=== PATIENT | female | born 1965 | race Caucasian/White ===

== ENCOUNTER 2021-03-02 19:25 | Inpatient (IN) ==
[2021-03-02 20:38] LABS: Basophils # 0.1 K/mcL (0.0-0.2); Basophils % 0.5 %; Eosinophils # 0.3 K/mcL (0.0-0.6); Eosinophils % 1.9 %; Hematocrit 39.8 % (35.3-44.9); Hemoglobin 12.6 g/dL (11.5-15.4); Immature Granulocytes % 0.6 % (0-4); Lymphocytes # 1.7 K/mcL (0.6-4.6); Lymphocytes % 13.3 %; Mean Corpuscular HGB Conc 31.7 g/dL (31.6-35.5); Mean Corpuscular Hemoglobin 29.1 pg (28.0-33.3); Mean Corpuscular Volume 91.9 fL (83.0-100.0); Mean Platelet Volume 11.1 fL (9.4-12.4); Monocytes # 1.4 K/mcL (0.0-1.3); Monocytes % 10.4 %; Neutrophils # 9.6 K/mcL (1.6-8.9); Platelet Count 257 K/mcL (140-400); Red Blood Count 4.33 M/mcL (3.82-4.97); Red Cell Distribution Width 13.4 % (11.5-14.5); Segmented Neutrophils % 73.3 %; White Blood Count 13.1 K/mcL (4.3-11.1)
[2021-03-02 21:14] LABS: BUN/Creatinine Ratio 7 (6-26); Blood Urea Nitrogen 4 mg/dL (6-20); Calcium 8.6 mg/dL (8.6-10.3); Carbon Dioxide 24 mEq/L (23-29); Chloride 103 mEq/L (98-107); Glucose 79 mg/dL (70-105); Osmolality,Calculated 276 (280-300); Potassium 3.7 mEq/L (3.5-5.1); Sodium 135 mEq/L (136-145); Troponin I 0.03 ng/mL (< 0.04); eGFR For African Americans > 60 (> 60); eGFR For Non-African Americans > 60 (> 60)
[2021-03-03] MEDS ORDERED: Ipratropium/Albuterol Neb 3 ML IH ONE (00:12)
[2021-03-03] MEDS ORDERED: Piperacillin/Tazobactam 3.375 GM in 0.9 % Sodium Chloride Mini Bag 100 ML IVPB ONE (00:13)
[2021-03-03] MEDS ORDERED: Azithromycin 500 MG in 0.9 % Sodium Chloride 250 ML IVPB ONE (00:13)
[2021-03-03] MEDS ORDERED: Vancomycin 1,500 MG/265 ML IV.SOLN IVPB ONE (00:13)
[2021-03-03 00:29] LABS: Bilirubin,Urine Negative (Negative); Blood,Urine Negative (Negative); Clarity,Urine Clear (Clear); Color,Urine Light-Yellow (Yellow); Glucose,Urine (UA) Normal (Normal); Ketones,Urine 20 mg/dL (Negative); Leukocyte Esterase,Urine Negative (Negative); Nitrite,Urine Negative (Negative); PH,Urine 7.5 pH Units (5.0-8.0); Protein,Urine Trace mg/dL (Neg-Trace); Specific Gravity,Urine 1.015 (1.010-1.025); Urobilinogen,Urine Normal (Normal)
[2021-03-03] MEDS ORDERED: Isovue-370 500 ML BOTTLE IVP ONE (01:15)
[2021-03-03] MEDS ORDERED: Ondansetron 4 MG/2 ML VIAL IVP PRN (01:58)
[2021-03-03] MEDS ORDERED: Naloxone 0.4 MG/ML INJ IVP PRN (01:58)
[2021-03-03 03:34] LABS: Basophils # 0.1 K/mcL (0.0-0.2); Basophils % 0.4 %; Eosinophils # 0.2 K/mcL (0.0-0.6); Eosinophils % 1.5 %; Hematocrit 37.7 % (35.3-44.9); Hemoglobin 12.3 g/dL (11.5-15.4); Immature Granulocytes % 0.5 % (0-4); Lymphocytes # 1.8 K/mcL (0.6-4.6); Lymphocytes % 14.1 %; Mean Corpuscular HGB Conc 32.6 g/dL (31.6-35.5); Mean Corpuscular Hemoglobin 29.2 pg (28.0-33.3); Mean Corpuscular Volume 89.5 fL (83.0-100.0); Mean Platelet Volume 10.9 fL (9.4-12.4); Monocytes # 1.3 K/mcL (0.0-1.3); Monocytes % 9.9 %; Neutrophils # 9.6 K/mcL (1.6-8.9); Platelet Count 279 K/mcL (140-400); Red Blood Count 4.21 M/mcL (3.82-4.97); Red Cell Distribution Width 13.4 % (11.5-14.5); Segmented Neutrophils % 73.6 %; White Blood Count 13.1 K/mcL (4.3-11.1)
[2021-03-03 03:41] LABS: INR 1.5; Prothrombin Time 17.2 Seconds (9.4-12.1)
[2021-03-03 03:53] LABS: Alanine Aminotransferase 15 Units/L (7-52); Albumin 2.8 g/dL (3.5-5.7); Albumin/Globulin Ratio 0.7 (1.1-2.2); Alkaline Phosphatase 96 Units/L (34-104); Aspartate Amino Transferase 12 Units/L (13-39); BUN/Creatinine Ratio 8 (6-26); Bilirubin,Total 0.5 mg/dL (0.3-1.0); Blood Urea Nitrogen 4 mg/dL (6-20); Calcium 8.3 mg/dL (8.6-10.3); Carbon Dioxide 21 mEq/L (23-29); Chloride 102 mEq/L (98-107); Globulin 4.3 g/dL (2.4-3.5); Glucose 79 mg/dL (70-105); Magnesium 1.8 mg/dL (1.6-2.6); Osmolality,Calculated 274 (280-300); Potassium 3.8 mEq/L (3.5-5.1); Sodium 134 mEq/L (136-145); Total Protein 7.1 g/dL (6.4-8.9); eGFR For African Americans > 60 (> 60); eGFR For Non-African Americans > 60 (> 60)
[2021-03-03 04:01] LABS: Thyroid Stimulating Hormone 3.615 mcIU/mL (0.340-5.600)
[2021-03-03] MEDS: Calcium Gluconate 1gm/50mL 1 GM/50 ML BAG IVPB SCH ×2 (09:44→11:38)
[2021-03-03] MEDS: Amoxicillin 500 MG CAPSULE PO SCH ×3 (11:37→20:05)
[2021-03-03] MEDS ORDERED: Gadolinium Contrast Agent (WT Based) IV PRN (15:50)
[2021-03-03] MEDS ORDERED: GADOBUTROL 30 MMOL/30 ML VIAL IVP ONE (18:06)
[2021-03-03] MEDS: Acetaminophen 325 MG TABLET PO PRN (20:09)
[2021-03-03] MEDS: Budesonide/Formoterol 160/4.5 1 PUFF INH IH SCH (20:35)
[2021-03-04 03:00] LABS: Basophils # 0.1 K/mcL (0.0-0.2); Basophils % 0.7 %; Eosinophils # 0.3 K/mcL (0.0-0.6); Hematocrit 34.9 % (35.3-44.9); Hemoglobin 11.5 g/dL (11.5-15.4); Immature Granulocytes % 0.5 % (0-4); Lymphocytes # 1.8 K/mcL (0.6-4.6); Mean Corpuscular Hemoglobin 29.4 pg (28.0-33.3); Mean Corpuscular Volume 89.3 fL (83.0-100.0); Mean Platelet Volume 10.4 fL (9.4-12.4); Monocytes # 1.2 K/mcL (0.0-1.3); Monocytes % 11.2 %; Neutrophils # 7.3 K/mcL (1.6-8.9); Platelet Count 275 K/mcL (140-400); Red Blood Count 3.91 M/mcL (3.82-4.97); Red Cell Distribution Width 13.5 % (11.5-14.5); Segmented Neutrophils % 67.6 %; White Blood Count 10.8 K/mcL (4.3-11.1)
[2021-03-04 03:11] LABS: Alanine Aminotransferase 26 Units/L (7-52); Albumin 2.6 g/dL (3.5-5.7); Albumin/Globulin Ratio 0.7 (1.1-2.2); Alkaline Phosphatase 108 Units/L (34-104); Aspartate Amino Transferase 29 Units/L (13-39); BUN/Creatinine Ratio 11 (6-26); Bilirubin,Total 0.3 mg/dL (0.3-1.0); Blood Urea Nitrogen 6 mg/dL (6-20); Calcium 7.9 mg/dL (8.6-10.3); Carbon Dioxide 24 mEq/L (23-29); Chloride 102 mEq/L (98-107); Globulin 3.9 g/dL (2.4-3.5); Glucose 118 mg/dL (70-105); Magnesium 2.2 mg/dL (1.6-2.6); Osmolality,Calculated 275 (280-300); Phosphorous 2.7 mg/dL (2.7-4.5); Potassium 3.6 mEq/L (3.5-5.1); Sodium 133 mEq/L (136-145); Total Protein 6.5 g/dL (6.4-8.9); eGFR For African Americans > 60 (> 60); eGFR For Non-African Americans > 60 (> 60)
[2021-03-04] MEDS: Acetaminophen 325 MG TABLET PO PRN ×2 (04:10→15:49)
[2021-03-04] MEDS: Budesonide/Formoterol 160/4.5 1 PUFF INH IH SCH ×2 (08:04→20:47)
[2021-03-04] MEDS: Amoxicillin 500 MG CAPSULE PO SCH ×3 (09:30→21:09)
[2021-03-04] MEDS: Calcium Gluconate 1gm/50mL 1 GM/50 ML BAG IVPB SCH ×2 (09:30→10:33)
[2021-03-04] MEDS ORDERED: Tiotropium 10 INH DOSE IH SCH (10:00)
[2021-03-04] MEDS ORDERED: Saline Nasal Spray 44 ML BOTTLE NS PRN (18:16)
[2021-03-04] MEDS ORDERED: Melatonin 3 MG TABLET PO PRN (18:16)
[2021-03-04] MEDS: Tiotropium 10 INH DOSE IH SCH (20:49)
[2021-03-04] MEDS: Artificial Tears SOLN 15 ML BOTTLE BOTH EYES SCH (21:10)
[2021-03-05 06:14] LABS: Basophils # 0.1 K/mcL (0.0-0.2); Basophils % 0.6 %; Eosinophils # 0.4 K/mcL (0.0-0.6); Eosinophils % 3.6 %; Hematocrit 35.1 % (35.3-44.9); Hemoglobin 11.1 g/dL (11.5-15.4); Immature Granulocytes % 0.9 % (0-4); Lymphocytes # 1.9 K/mcL (0.6-4.6); Lymphocytes % 17.2 %; Mean Corpuscular HGB Conc 31.6 g/dL (31.6-35.5); Mean Corpuscular Hemoglobin 28.7 pg (28.0-33.3); Mean Corpuscular Volume 90.7 fL (83.0-100.0); Mean Platelet Volume 10.1 fL (9.4-12.4); Monocytes # 1.1 K/mcL (0.0-1.3); Monocytes % 10.2 %; Neutrophils # 7.3 K/mcL (1.6-8.9); Platelet Count 302 K/mcL (140-400); Red Blood Count 3.87 M/mcL (3.82-4.97); Red Cell Distribution Width 13.8 % (11.5-14.5); Segmented Neutrophils % 67.5 %; White Blood Count 10.8 K/mcL (4.3-11.1)
[2021-03-05 06:46] LABS: Alanine Aminotransferase 28 Units/L (7-52); Albumin 2.7 g/dL (3.5-5.7); Albumin/Globulin Ratio 0.7 (1.1-2.2); Alkaline Phosphatase 114 Units/L (34-104); Aspartate Amino Transferase 21 Units/L (13-39); BUN/Creatinine Ratio 11 (6-26); Bilirubin,Total 0.3 mg/dL (0.3-1.0); Blood Urea Nitrogen 6 mg/dL (6-20); Calcium 8.3 mg/dL (8.6-10.3); Carbon Dioxide 25 mEq/L (23-29); Chloride 103 mEq/L (98-107); Globulin 4.1 g/dL (2.4-3.5); Glucose 119 mg/dL (70-105); Osmolality,Calculated 279 (280-300); Potassium 3.4 mEq/L (3.5-5.1); Sodium 135 mEq/L (136-145); Total Protein 6.8 g/dL (6.4-8.9); eGFR For African Americans > 60 (> 60); eGFR For Non-African Americans > 60 (> 60)
[2021-03-05 06:47] LABS: % Iron Saturation 10 % (15-50); Iron 20 mcg/dL (50-170); Transferrin 148 mg/dL (203-362)
[2021-03-05 06:51] LABS: Ferritin 364 ng/mL (10-120)
[2021-03-05 06:57] LABS: Folate 8.9 ng/mL (3.0-16.0)
[2021-03-05] MEDS: Budesonide/Formoterol 160/4.5 1 PUFF INH IH SCH ×2 (07:47→20:30)
[2021-03-05] MEDS ORDERED: Iron Sucrose Complex 400 MG in 0.9 % Sodium Chloride 250 ML IVPB ONE (07:50)
[2021-03-05] MEDS: Multivit/Ca/Min/Fe/FA 1 TAB TABLET PO SCH (08:19)
[2021-03-05] MEDS: Amoxicillin 500 MG CAPSULE PO SCH ×2 (08:20→14:19)
[2021-03-05] MEDS: Artificial Tears SOLN 15 ML BOTTLE BOTH EYES SCH ×2 (09:44→19:49)
[2021-03-05] MEDS: Calcium Gluconate 1gm/50mL 1 GM/50 ML BAG IVPB SCH ×2 (12:59→14:50)
[2021-03-05] MEDS ORDERED: Calcium Gluconate 1gm/50mL 1 GM/50 ML BAG IVPB ONE (14:13)
[2021-03-05] MEDS: Piperacillin/Tazobactam 3.375 GM in 0.9 % Sodium Chloride Mini Bag 100 ML IVPB SCH ×2 (15:32→23:37)
[2021-03-05] MEDS: Tiotropium 10 INH DOSE IH SCH (20:30)
[2021-03-06 05:51] LABS: Basophils # 0.1 K/mcL (0.0-0.2); Basophils % 0.6 %; Eosinophils # 0.6 K/mcL (0.0-0.6); Eosinophils % 5.9 %; Hematocrit 35.2 % (35.3-44.9); Hemoglobin 10.9 g/dL (11.5-15.4); Immature Granulocytes % 1.4 % (0-4); Lymphocytes # 1.8 K/mcL (0.6-4.6); Lymphocytes % 16.8 %; Mean Corpuscular Hemoglobin 28.3 pg (28.0-33.3); Mean Corpuscular Volume 91.4 fL (83.0-100.0); Monocytes # 1.1 K/mcL (0.0-1.3); Monocytes % 10.4 %; Platelet Count 299 K/mcL (140-400); Red Blood Count 3.85 M/mcL (3.82-4.97); Red Cell Distribution Width 13.8 % (11.5-14.5); Segmented Neutrophils % 64.9 %; White Blood Count 10.8 K/mcL (4.3-11.1)
[2021-03-06 06:07] LABS: Alanine Aminotransferase 33 Units/L (7-52); Albumin 2.8 g/dL (3.5-5.7); Albumin/Globulin Ratio 0.7 (1.1-2.2); Alkaline Phosphatase 106 Units/L (34-104); Aspartate Amino Transferase 27 Units/L (13-39); BUN/Creatinine Ratio 15 (6-26); Bilirubin,Total 0.2 mg/dL (0.3-1.0); Blood Urea Nitrogen 8 mg/dL (6-20); Calcium 8.7 mg/dL (8.6-10.3); Carbon Dioxide 24 mEq/L (23-29); Chloride 105 mEq/L (98-107); Globulin 3.9 g/dL (2.4-3.5); Glucose 130 mg/dL (70-105); Magnesium 2.1 mg/dL (1.6-2.6); Osmolality,Calculated 278 (280-300); Phosphorous 4.3 mg/dL (2.7-4.5); Sodium 134 mEq/L (136-145); Total Protein 6.7 g/dL (6.4-8.9); eGFR For African Americans > 60 (> 60); eGFR For Non-African Americans > 60 (> 60)
[2021-03-06] MEDS: Budesonide/Formoterol 160/4.5 1 PUFF INH IH SCH (07:59)
[2021-03-06] MEDS: Artificial Tears SOLN 15 ML BOTTLE BOTH EYES SCH (10:17)
[2021-03-06] MEDS: Piperacillin/Tazobactam 3.375 GM in 0.9 % Sodium Chloride Mini Bag 100 ML IVPB SCH ×2 (10:17→16:33)
[2021-03-06] MEDS: Multivit/Ca/Min/Fe/FA 1 TAB TABLET PO SCH (10:18)
[2021-03-06 10:49] VITALS: BP 110/72
[2021-03-06] MEDS ORDERED: Chlorhexidine Rinse 15 ML MOUTHWASH MM SCH (21:00)
[2021-03-07 22:45] LABS: A.galactomannan Ag Index 0.05
== END 2021-03-06 17:39 | disposition home or self-care (01) | DRG 871 ==
LOC: EMEROOARM 19:25 → 3ANU 19:25 → SUATTDRO 03-03 01:38 → 3ANU 03-03 03:14
PROVIDERS: ADMIT Internal Medicine; ATTEND Internal Medicine

== ENCOUNTER 2021-05-07 10:11 | Inpatient (IN) ==
[2021-05-07] MEDS ORDERED: Ondansetron 4 MG/2 ML VIAL IVP PRN ×2 (10:33→19:44)
[2021-05-07] MEDS ORDERED: Ringers Solution, Lactated 1,000 ML IVC SCH (10:45)
[2021-05-07] MEDS ORDERED: CeFAZolin Syr 2,000MG/20 ML 2,000 MG/20 ML SYRINGE IVPB ONE (10:53)
[2021-05-07] MEDS ORDERED: Lidocaine -MPF 4% 5 ML AMPUL ONE (11:06)
[2021-05-07] MEDS ORDERED: *HR* Rocuronium Bromide 50 MG/5 ML VIAL ONE ×2 (11:10→14:07)
[2021-05-07] MEDS ORDERED: *HR* Succinylcholine 200 MG/10 ML VIAL IVP ONE (11:10)
[2021-05-07] MEDS ORDERED: Acetaminophen IV 1,000 MG/100 ML BAG IVPB ONE (12:03)
[2021-05-07] MEDS ORDERED: *HR* Magnesium Sulfate 1 GM/2 ML VIAL ONE (12:10)
[2021-05-07] MEDS ORDERED: Ondansetron 4 MG/2 ML VIAL ONE (12:29)
[2021-05-07] MEDS ORDERED: Lidocaine -MPF 2% 2 ML VIAL ONE (12:29)
[2021-05-07] MEDS ORDERED: *HR* FentaNYL (PF) 100 MCG/2 ML VIAL ONE (12:30)
[2021-05-07] MEDS ORDERED: *HR* Midazolam HCl 5 MG/5 ML VIAL IVP ONE (12:30)
[2021-05-07] MEDS ORDERED: *HR* Labetalol 20 MG/4 ML SYRINGE IVP ONE (13:05)
[2021-05-07] MEDS ORDERED: *HR* HYDROMORPHONE 2 MG/ML VIAL ONE (13:05)
[2021-05-07] MEDS: *HR* HYDROmorphone PF 0.5 MG/0.5 ML SYRINGE IVP PRN ×2 (15:21→15:28)
[2021-05-07] MEDS ORDERED: *HR* HYDROcodone/Acet 5/325 mg TABLET PO PRN (18:11)
[2021-05-07] MEDS ORDERED: 0.9 % Sodium Chloride 1,000 ML IVC SCH (18:15)
[2021-05-07] MEDS ORDERED: Naloxone 0.4 MG/ML INJ IVP PRN (19:44)
[2021-05-07] MEDS: Ipratropium/Albuterol Neb 3 ML IH SCH ×2 (20:19→23:20)
[2021-05-07] MEDS: Sennosides/Docusate Sodium TABLET PO SCH ×2 (20:42→20:47)
[2021-05-07] MEDS: Gabapentin 300 MG CAPSULE PO SCH (20:42)
[2021-05-07] MEDS: Famotidine 20 MG TABLET PO SCH (20:42)
[2021-05-07] MEDS: 0.9 % Sodium Chloride 1,000 ML IVC SCH (20:43)
[2021-05-07] MEDS: Tiotropium 10 INH DOSE IH SCH (20:45)
[2021-05-07] MEDS: *HR* Heparin 5,000 UNIT/ML VIAL SQ SCH (20:50)
[2021-05-07] MEDS: Ketorolac 15 MG/ML VIAL IVP SCH (23:00)
[2021-05-08] MEDS: *HR* HYDROcodone/Acet 5/325 mg TABLET PO PRN ×3 (01:46→10:07)
[2021-05-08] MEDS: SALMETEROL PO SCH ×2 (02:06→07:33)
[2021-05-08] MEDS: FLUTICASONE PROPION PO SCH ×2 (02:06→07:33)
[2021-05-08 03:30] LABS: Hematocrit 40.9 % (35.3-44.9); Hemoglobin 13.6 g/dL (11.5-15.4); Mean Corpuscular HGB Conc 33.3 g/dL (31.6-35.5); Mean Corpuscular Hemoglobin 30.2 pg (28.0-33.3); Mean Corpuscular Volume 90.7 fL (83.0-100.0); Mean Platelet Volume 10.5 fL (9.4-12.4); Platelet Count 262 K/mcL (140-400); Red Blood Count 4.51 M/mcL (3.82-4.97); Red Cell Distribution Width 13.2 % (11.5-14.5); White Blood Count 13.1 K/mcL (4.3-11.1)
[2021-05-08 03:47] LABS: BUN/Creatinine Ratio 21 (6-26); Blood Urea Nitrogen 13 mg/dL (6-20); Calcium 8.6 mg/dL (8.6-10.3); Carbon Dioxide 23 mEq/L (23-29); Chloride 102 mEq/L (98-107); Glucose 147 mg/dL (70-105); Magnesium 2.3 mg/dL (1.6-2.6); Osmolality,Calculated 277 (280-300); Potassium 4.8 mEq/L (3.5-5.1); Sodium 132 mEq/L (136-145); eGFR For African Americans > 60 (> 60); eGFR For Non-African Americans > 60 (> 60)
[2021-05-08] MEDS: Ipratropium/Albuterol Neb 3 ML IH SCH ×6 (04:04→23:46)
[2021-05-08] MEDS: *HR* Heparin 5,000 UNIT/ML VIAL SQ SCH ×3 (06:11→20:17)
[2021-05-08] MEDS: Ketorolac 15 MG/ML VIAL IVP SCH ×4 (06:11→23:50)
[2021-05-08] MEDS: Gabapentin 300 MG CAPSULE PO SCH ×3 (07:32→20:17)
[2021-05-08] MEDS: 0.9 % Sodium Chloride 1,000 ML IVC SCH (07:33)
[2021-05-08] MEDS: Famotidine 20 MG TABLET PO SCH ×2 (07:33→20:17)
[2021-05-08] MEDS: Sennosides/Docusate Sodium TABLET PO SCH ×2 (07:33→20:17)
[2021-05-08] MEDS: Budesonide/Formoterol 160/4.5 1 PUFF INH IH SCH ×2 (11:52→20:12)
[2021-05-08] MEDS: *HR* HYDROcodone/Acet 7.5/325 mg TABLET PO PRN ×3 (14:50→22:52)
[2021-05-08] MEDS: Tiotropium 10 INH DOSE IH SCH (20:13)
[2021-05-08] MEDS ORDERED: *HR* HYDROmorphone 2 MG/ML SYRINGE IVP PRN (23:56)
[2021-05-09] MEDS: Ipratropium/Albuterol Neb 3 ML IH SCH ×6 (04:43→23:49)
[2021-05-09] MEDS: *HR* Heparin 5,000 UNIT/ML VIAL SQ SCH ×3 (04:52→20:34)
[2021-05-09] MEDS: Ketorolac 15 MG/ML VIAL IVP SCH ×4 (04:53→20:59)
[2021-05-09] MEDS: Budesonide/Formoterol 160/4.5 1 PUFF INH IH SCH ×2 (07:22→20:07)
[2021-05-09] MEDS: Famotidine 20 MG TABLET PO SCH ×2 (08:39→20:34)
[2021-05-09] MEDS: *HR* HYDROcodone/Acet 7.5/325 mg TABLET PO PRN ×3 (08:39→18:49)
[2021-05-09] MEDS: Gabapentin 300 MG CAPSULE PO SCH (08:39)
[2021-05-09] MEDS: Sennosides/Docusate Sodium TABLET PO SCH ×2 (08:39→20:34)
[2021-05-09] MEDS: MOM Conc 10 ML UD.LIQ PO SCH (10:01)
[2021-05-09] MEDS: Gabapentin 400 MG CAPSULE PO SCH ×2 (14:04→20:34)
[2021-05-09] MEDS: Tiotropium 10 INH DOSE IH SCH (20:12)
[2021-05-10] MEDS: Ipratropium/Albuterol Neb 3 ML IH SCH ×3 (03:31→10:39)
[2021-05-10 03:42] LABS: Hematocrit 35.3 % (35.3-44.9); Hemoglobin 11.2 g/dL (11.5-15.4); Mean Corpuscular HGB Conc 31.7 g/dL (31.6-35.5); Mean Corpuscular Hemoglobin 29.4 pg (28.0-33.3); Mean Corpuscular Volume 92.7 fL (83.0-100.0); Mean Platelet Volume 10.6 fL (9.4-12.4); Platelet Count 228 K/mcL (140-400); Red Blood Count 3.81 M/mcL (3.82-4.97); White Blood Count 9.2 K/mcL (4.3-11.1)
[2021-05-10 04:00] LABS: BUN/Creatinine Ratio 25 (6-26); Blood Urea Nitrogen 17 mg/dL (6-20); Calcium 8.3 mg/dL (8.6-10.3); Carbon Dioxide 25 mEq/L (23-29); Chloride 105 mEq/L (98-107); Glucose 128 mg/dL (70-105); Osmolality,Calculated 283 (280-300); Potassium 4.6 mEq/L (3.5-5.1); Sodium 135 mEq/L (136-145); eGFR For African Americans > 60 (> 60); eGFR For Non-African Americans > 60 (> 60)
[2021-05-10] MEDS: Ketorolac 15 MG/ML VIAL IVP SCH ×2 (05:45→11:25)
[2021-05-10] MEDS: *HR* Heparin 5,000 UNIT/ML VIAL SQ SCH (05:45)
[2021-05-10] MEDS: *HR* HYDROcodone/Acet 7.5/325 mg TABLET PO PRN ×2 (05:46→11:26)
[2021-05-10] MEDS: Budesonide/Formoterol 160/4.5 1 PUFF INH IH SCH (07:44)
[2021-05-10] MEDS: Famotidine 20 MG TABLET PO SCH (08:22)
[2021-05-10] MEDS: Sennosides/Docusate Sodium TABLET PO SCH (08:22)
[2021-05-10] MEDS: MOM Conc 10 ML UD.LIQ PO SCH (08:22)
[2021-05-10] MEDS: Gabapentin 400 MG CAPSULE PO SCH (08:23)
[2021-05-10 10:40] VITALS: O2SAT 96
[2021-05-10 11:41] VITALS: BP 127/57; PULSE 97; TEMP 97.8
== END 2021-05-10 13:45 | disposition home or self-care (01) | DRG 120 ==
LOC: SAMDAY 10:11 → 2NNU 16:07
PROVIDERS: ADMIT Thoracic Surgery (Cardiothoracic Vascular Surgery); ATTEND Thoracic Surgery (Cardiothoracic Vascular Surgery)